=== PATIENT | male | born 1970 | race Caucasian/White ===

== ENCOUNTER 2017-01-14 10:33 | Emergency (ER) | payer BC ==
[2017-01-14] MEDS ORDERED: PREDNISONE 20 MG TAB PO ONE (11:13)
[2017-01-14 11:41] LABS: HEMATOCRIT 41.6 % (42.0-52.0); HEMOGLOBIN 14.5 gm/dl (14.0-18.0); MEAN CORPUSCULAR HEMOGLOBIN 31.4 pg (27-33); MEAN CORPUSCULAR HGB CONC 34.9 g/dl (32-36); MEAN PLATELET VOLUME 10.4 fl (7.4-10.4); PLATELET COUNT 195 K/uL (130-400); RED BLOOD COUNT 4.62 M/uL (4.40-5.70); RED CELL DISTRIBUTION WIDTH 12.3 % (11.5-14.5); WHITE BLOOD COUNT W/O DIFF 5.4 K/uL (4.2-12.2)
--- NOTE | 2017-01-14 11:53 | Emergency Department Record ---
History of Present Illness - General Chief Complaint: Ankle/Foot Injury Stated Complaint: L ANKLE PAIN Time Seen by Provider: 01/14/17 10:46 Source: Patient, RN notes reviewed Mode of Arrival: Ambulatory - History of Present Illness Initial Comments: ankle pain for 10 days and swollen and he has a history of gout Onset/Timin -: Days(s) Type of Injury: Unknown Place: Home Severity: Mild Severity scale (1-10): 5 Improves With: Immobilization Worsens With: Nothing, Other Associated Symptoms: Ambulatory - Related Data Previous Rx's Medication Instructions Recorded Prednisone [Prednisone 10Mg] 10 mg PO ASDIR #30 tab 01/14/17 Allergies Allergy/AdvReac Type Severity Reaction Status Date / Time No Known Drug Allergies Allergy Unverified 10/10/16 18:41 Travel Screening - Travel/Exposure Within Last 30 Days Have you traveled within the last 30 days?: No Review of Systems Reviewed: No additional complaints except as noted below Constitutional: Reports: As per HPI. Denies: Chills, Fever, Malaise, Night sweats, Weakness, Weight change Eyes: Reports: As per HPI. Denies: Eye discharge, Eye pain, Photophobia, Vision change ENT: Reports: As per HPI. Denies: Congestion, Dental pain, Ear pain, Epistaxis , Hearing loss, Throat pain Respiratory: Reports: As per HPI. Denies: Cough, Dyspnea, Hemoptysis, Stridor, Wheezes Cardiovascular: Reports: As per HPI. Denies: Arrhythmia, Chest pain, Dyspnea on exertion, Edema, Murmurs, Orthopnea, Palpitations, Paroxysmal nocturnal dyspnea, Rheumatic Fever, Syncope Endocrine: Reports: As per HPI. Denies: Fatigue, Heat or cold intolerance, Polydipsia, Polyuria Gastrointestinal: Reports: As per HPI. Denies: Abdominal pain, Constipation, Diarrhea, Hematemesis, Hematochezia, Melena, Nausea, Vomiting Genitourinary: Reports: As per HPI. Denies: Dysuria, Frequency, Hematuria, Incontinence, Retention, Testicular pain, Testicular mass, Urgency Musculoskeletal: Reports: As per HPI, Arthralgia (left ankle pain). Denies: Back pain, Gout, Joint swelling, Myalgia, Neck pain Skin: Reports: As per HPI. Denies: Bruising, Change in color, Change in hair/ nails, Lesions, Pruritus, Rash Neurological: Reports: As per HPI. Denies: Abnormal gait, Confusion, Headache, Numbness, Paresthesias, Seizure, Tingling, Tremors, Vertigo, Weakness Psychiatric: Reports: As per HPI. Denies: Anxiety, Auditory hallucinations, Depression, Homicidal thoughts, Suicidal thoughts, Visual hallucinations Hematological/Lymphatic: Reports: As per HPI. Denies: Anemia, Blood Clots, Easy bleeding, Easy bruising, Swollen glands Past Medical History - SOCIAL HISTORY Smoking Status: Former smoker Alcohol Use: Occasional Drug Use: None - RESPIRATORY Hx Respiratory Disorders: No - CARDIOVASCULAR Hx Cardio Disorders: Yes Hx Hypertension: Yes - NEURO Hx Neuro Disorders: No - GI Hx GI Disorders: No - Hx Genitourinary Disorders: No - ENDOCRINE Hx Endocrine Disorders: No - MUSCULOSKELETAL Hx Musculoskeletal Disorders: No - PSYCH Hx Psych Problems: No - HEMATOLOGY/ONCOLOGY Hx Hematology/Oncology Disorders: No Family Medical History Any Significant Family History?: No Physical Exam - General General Appearance: Alert, Oriented x3, Cooperative, No acute distress - Head Head exam: Normal inspection - Eye Eye exam: Normal appearance, PERRL Pupils: Normal accommodation - ENT ENT exam: Normal exam, Mucous membranes moist, Normal external ear exam, Normal orophraynx, TM's normal bilaterally Ear exam: Normal external inspection. negative: External canal tenderness Nasal Exam: Normal inspection. negative: Discharge, Sinus tenderness Mouth exam: Normal external inspection, Tongue normal Teeth exam: Normal inspection. negative: Dental caries Throat exam: Normal inspection. negative: Tonsillar erythema, Tonsillar exudate - Neck Neck exam: Normal inspection, Full ROM. negative: Tenderness - Respiratory Respiratory exam: Normal lung sounds bilaterally. negative: Respiratory distress - Cardiovascular Cardiovascular Exam: Regular rate, Normal rhythm, Normal heart sounds - GI/Abdominal GI/Abdominal exam: Soft, Normal bowel sounds. negative: Tenderness - Rectal Rectal exam: Deferred - exam: Deferred - Extremities Extremities exam: Joint swelling, Normal capillary refill, Tenderness (ankle pain left and swelling ) - Back Back exam: Reports: Normal inspection, Full ROM. Denies: Muscle spasm, Rash noted, Tenderness - Neurological Neurological exam: Alert, Normal gait, Oriented X3, Reflexes normal - Psychiatric Psychiatric exam: Normal affect, Normal mood - Skin Skin exam: Dry, Intact, Normal color, Warm Course Vital Signs 01/14/17 10:36 Temperature 97.8 F Pulse Rate 95 H Respiratory 18 Rate Blood Pressure 127/86 Pulse Ox 97 Medical Decision Making - Data Complexity MDM Data: Labs Ordered and/or Reviewed (uric acid is high), X-Ray Ordered and/ or Reviewed (negative for fractures) - Lab Data Result diagrams: 01/14/17 11:26 Lab Results 01/14/17 Range/Units 11:26 WBC 5.4 (4.2-12.2) K/uL RBC 4.62 (4.40-5.70) M/uL Hgb 14.5 (14.0-18.0) gm/dl Hct 41.6 L (42.0-52.0) % MCV 90.0 (81-97) fl MCH 31.4 (27-33) pg MCHC 34.9 (32-36) g/dl RDW 12.3 (11.5-14.5) % Plt Count 195 (130-400) K/uL MPV 10.4 (7.4-10.4) fl Eosinophils % Not Reportable Basophils % Not Reportable Disposition Clinical Impression: Gout attack Qualifiers: Gout site: ankle Gout etiology: idiopathic Laterality: left Qualified Code(s): M10.072 - Idiopathic gout, left ankle and foot Disposition: Home, Self-Care Condition: (1) Good Instructions: Gout (ED) Additional Instructions: follow up with family Prescriptions: Prednisone [Prednisone 10Mg] 10 mg PO ASDIR #30 tab Forms: Patient Portal Access Time of Disposition: 12:14 Quality - Quality Measures Quality Measures: N/A - Blood Pressure Screening Does Patient Have Any of the Following: No Blood Pressure Classification: Pre-Hypertensive BP Reading Systolic Measurement: 127 Diastolic Measurement: 86 Screening for High Blood Pressure: Patient Exclusion, Hx of HTN [G9744]
[2017-01-14 12:03] LABS: C-REACTIVE PROTEIN < 0.3 mg/L (<5.0)
--- NOTE | 2017-01-15 09:03 | RADIOLOGY REPORT ---
EXAM: LEFT ANKLE HISTORY: LEFT ANKLE PAIN. TECHNIQUE: Three views of the left ankle were obtained. Comparison: None. Encounter: Initial. FINDINGS: Deformity of the ankle mortise consistent with chronic degenerative change and/or old trauma. Negative for acute fracture or dislocation. Well corticated ossific densities are seen posteriorly. Small calcaneal spurs. The soft tissues are unremarkable. IMPRESSION: CHRONIC CHANGES TO THE ANKLE MORTISE. NO ACUTE OSSEOUS ABNORMALITY. JOB NUMBER: [id number] [facility]
== END 2017-01-14 12:24 | disposition home or self-care (01) ==
LOC: ER 10:33
DX: M10.072 Idiopathic gout, left ankle and foot (principal)
CPT/HCPCS: 99283; 99284; 84550; 86140; 85027; 73610; J7512

== ENCOUNTER 2017-09-02 00:47 | Emergency (ER) | payer BC ==
[2017-09-02] MEDS ORDERED: CEFTRIAXONE SODIUM 1 GM in 0.9 % SODIUM CHLORIDE 100ML 100 ML IVPB ONE (01:02)
--- NOTE | 2017-09-02 01:05 | Emergency Department Record ---
History of Present Illness - General Chief Complaint: Fever Stated Complaint: FEVER/SWELLING AT THE R ELBOW Time Seen by Provider: 09/02/17 00:56 Source: Patient Mode of Arrival: Ambulatory Limitations: No limitations - History of Present Illness Initial Comments: The patient is here due to R elbow pain for 2 days. The patient fell 2 days ago and punctured the R elbow on an unknown object. Since the elbow has become more swollen and painful. He has felt feverish but has not had any documented fever. MD Complaint: Other Onset/Timin -: Days(s) Temperature Source: Oral Associated Symptoms: Denies other symptoms Treatments Prior to Arrival: None - Related Data Home Medications Medication Instructions Recorded Confirmed Last Taken Allopurinol 100 mg PO DAILY 09/02/17 09/02/17 Unknown Previous Rx's Medication Instructions Recorded Cephalexin [Keflex] 500 mg PO QID #28 cap 09/02/17 Allergies Allergy/AdvReac Type Severity Reaction Status Date / Time No Known Drug Allergies Allergy Unverified 10/10/16 18:41 Travel Screening - Travel/Exposure Within Last 30 Days Have you traveled within the last 30 days?: No - Travel/Exposure Within Last Year Have you traveled outside the [place] in the last year?: No - Additonal Travel Details Have you been exposed to anyone with a communicable illness?: No - Travel Symptoms Symptom Screening: None Review of Systems Constitutional: Reports: Malaise. Denies: Chills, Fever Eyes: Denies: Eye discharge ENT: Denies: Congestion Respiratory: Denies: Cough, Dyspnea Past Medical History - SOCIAL HISTORY Smoking Status: Former smoker Alcohol Use: None Drug Use: None - RESPIRATORY Hx Respiratory Disorders: No - CARDIOVASCULAR Hx Cardio Disorders: Yes Hx Hypertension: Yes - NEURO Hx Neuro Disorders: No - GI Hx GI Disorders: No - Hx Genitourinary Disorders: No - ENDOCRINE Hx Endocrine Disorders: No - MUSCULOSKELETAL Hx Musculoskeletal Disorders: No - PSYCH Hx Psych Problems: No - HEMATOLOGY/ONCOLOGY Hx Hematology/Oncology Disorders: No Family Medical History Any Significant Family History?: No Physical Exam - General General Appearance: Alert, Oriented x3, Cooperative, No acute distress - Head Head exam: Atraumatic, Normocephalic, Normal inspection - Eye Eye exam: Normal appearance, PERRL - Extremities Extremities exam: Full ROM (There is normal ROM to the R elbow with pain on full flexion.), Normal capillary refill, Tenderness (There is swelling, erythema , and tenderness to the olcranon area with a healing puncture wound in the center.), Other (The R arm is NVI. The patient does have mild R 4th finger tenderness at the DIP joint but has normal flexion and extension.). negative: Normal inspection, Joint swelling (There are no signs of elbow joint effusion or infection. ) - Neurological Neurological exam: Alert. negative: Motor sensory deficit Course Vital Signs 09/02/17 00:52 Temperature 98.8 F Pulse Rate [ 72 Pulse Ox Probe] Respiratory 16 Rate Blood Pressure 130/78 [Left Arm] Pulse Ox 99 - Reevaluation(s) Reevaluation #1: Procedure note: The R olecranon bursae was prepped with betadine and anesth. with 1 cc's of Lido 1% with EPi. A # 18 guage needle was used to aspirate 2 cc' s of straw colored fluid from the bursae. There were no complications. 09/02/17 01:22 Reevaluation #2: The patient is doing very well. I did discuss the lab results and xray results. He is to return to the ER at 2:00 pm for recheck and repeat IV Abx's. 09/02/17 02:56 Medical Decision Making - Data Complexity MDM Data: Labs Ordered and/or Reviewed, X-Ray Ordered and/or Reviewed - Lab Data Result diagrams: 09/02/17 01:20 09/02/17 01:20 - Radiology Data Radiology results: Report reviewed (R elbow and 4th finger: neg for acute changes.) Disposition Disposition: Discharge Clinical Impression: Olecranon bursitis of right elbow Disposition: Home, Self-Care Condition: (2) Stable Instructions: Elbow Bursitis (ED) Additional Instructions: Please take your home Motrin for pain and please return to the ER at 2:00 pm for recheck and repeat IV abx's. Plan on starting the Keflex tomorrow if discharged this afternoon. Please plan on seeing your family doctor for recheck in 2-3 days. Prescriptions: Cephalexin [Keflex] 500 mg PO QID #28 cap Forms: Patient Portal Access Time of Disposition: 02:59 Quality - Quality Measures Quality Measures: N/A - Blood Pressure Screening View Details: Yes Does Patient Have Any of the Following: No Blood Pressure Classification: Normal BP Reading Systolic Measurement: 118 Diastolic Measurement: 74 Screening for High Blood Pressure: < Normal BP, F/U Not Required > [G8755]
[2017-09-02] MEDS ORDERED: Diph,Pert(Acell),Tet Vac 0.5 ML SYR IM ONE (01:21)
[2017-09-02 01:40] LABS: BASO % 0.4 % (0-6); EOS % 5.1 % (0-6); HEMATOCRIT 39.1 % (42.0-52.0); HEMOGLOBIN 13.2 gm/dl (14.0-18.0); LYMPH % 14.9 % (16-45); MEAN CELL VOLUME 91.6 fl (81-97); MEAN CORPUSCULAR HEMOGLOBIN 30.9 pg (27-33); MEAN CORPUSCULAR HGB CONC 33.8 g/dl (32-36); MEAN PLATELET VOLUME 10.1 fl (7.4-10.4); MONO % 14.6 % (0-9); PLATELET COUNT 217 K/uL (130-400); RED BLOOD COUNT 4.27 M/uL (4.40-5.70); RED CELL DISTRIBUTION WIDTH 13.4 % (11.5-14.5); WHITE BLOOD COUNT W/O DIFF 8.6 K/uL (4.2-12.2)
[2017-09-02] MEDS ORDERED: IBUPROFEN 600 MG TABLET PO ONE (01:42)
[2017-09-02 03:04] LABS: BLOOD UREA NITROGEN 20 mg/dL (6-20); EST GLOMERULAR FILTRATION RATE > 60 mL/min
[2017-09-02 03:07] LABS: GLUCOSE,RANDOM 139 mg/dL (74-109)
[2017-09-02 03:10] LABS: C-REACTIVE PROTEIN 1.71 mg/dL (<0.5)
[2017-09-02 05:21] LABS: SYNOVIAL FLUID SOURCE ELBOW
[2017-09-02 05:22] LABS: SYNOVIAL FLUID APPEARANCE YELLOW; SYNOVIAL FLUID COLOR TURBID
--- NOTE | 2017-09-03 10:21 | RADIOLOGY REPORT ---
EXAM: RIGHT FOURTH FINGER HISTORY: INJURY. TECHNIQUE: Three views of the right fourth finger were obtained. Comparison: None. FINDINGS: Negative for an acute fracture or dislocation. The soft tissues are unremarkable. IMPRESSION: NEGATIVE EXAMINATION. J[facility]BER: [id number] [facility]
--- NOTE | 2017-09-03 10:24 | RADIOLOGY REPORT ---
EXAM: RIGHT ELBOW HISTORY: PAIN. TECHNIQUE: Four views of the right elbow were obtained. Comparison: None. FINDINGS: Post surgical changes of the distal humerus. Posterior soft tissue swelling. Olecranon spur. Degenerative changes of the elbow with joint space narrowing and spur formation. No evidence for an acute fracture or dislocation. No definitive joint effusion. IMPRESSION: POST SURGICAL CHANGE OF THE DISTAL HUMERUS. DEGENERATIVE CHANGES. POSTERIOR SOFT TISSUE SWELLING. [facility]BER: [id number] [facility]
== END 2017-09-02 03:04 | disposition home or self-care (01) ==
LOC: ER 00:47
DX: M70.21 Olecranon bursitis, right elbow (principal); I10 Essential (primary) hypertension; Z87.891 Personal history of nicotine dependence
CPT/HCPCS: 20605; 73140; 80048; 85025; 86140; 89051; 90715; 96365; 96372; 99282; 99284

== ENCOUNTER 2017-09-02 14:14 | Emergency (ER) | payer BC ==
[2017-09-02] MEDS ORDERED: CEFTRIAXONE 1 GRAM VIAL IM ONE (14:55)
--- NOTE | 2017-09-02 14:57 | Emergency Department Record ---
History of Present Illness - General Chief Complaint: Wound, check Stated Complaint: WOUND RECHECK/RT FOREARM Time Seen by Provider: 09/02/17 14:52 - History of Present Illness Initial Comments: recheck of olecronen bursitis and the patient states slightly better and less swollen and his primary DrHari is in [place] Onset/Timin -: Days(s) Initial Visit For: Cellulitis Returns Today for: Cellulitis follow-up Symptoms Since Prior Visit: No new symptoms Treatments Prior to Arrival: Given antibiotics on initial visit - Related Data Previous Rx's Medication Instructions Recorded Cephalexin [Keflex] 500 mg PO QID #28 cap 09/02/17 Sulfamethoxazole/Trimethoprim 1 each PO BID #20 tablet 09/02/17 [Bactrim Ds Tablet] Allergies Allergy/AdvReac Type Severity Reaction Status Date / Time No Known Drug Allergies Allergy Verified 09/02/17 14:23 Travel Screening - Travel/Exposure Within Last 30 Days Have you traveled within the last 30 days?: Yes Location Detail:: [place] - Travel/Exposure Within Last Year Have you traveled outside the [place] in the last year?: No - Additonal Travel Details Have you been exposed to anyone with a communicable illness?: No - Travel Symptoms Symptom Screening: None Review of Systems Reviewed: No additional complaints except as noted below Constitutional: Reports: As per HPI. Denies: Chills, Fever, Malaise, Night sweats, Weakness, Weight change Eyes: Reports: As per HPI. Denies: Eye discharge, Eye pain, Photophobia, Vision change ENT: Reports: As per HPI. Denies: Congestion, Dental pain, Ear pain, Epistaxis , Hearing loss, Throat pain Respiratory: Reports: As per HPI. Denies: Cough, Dyspnea, Hemoptysis, Stridor, Wheezes Cardiovascular: Reports: As per HPI. Denies: Arrhythmia, Chest pain, Dyspnea on exertion, Edema, Murmurs, Orthopnea, Palpitations, Paroxysmal nocturnal dyspnea, Rheumatic Fever, Syncope Endocrine: Reports: As per HPI. Denies: Fatigue, Heat or cold intolerance, Polydipsia, Polyuria Gastrointestinal: Reports: As per HPI. Denies: Abdominal pain, Constipation, Diarrhea, Hematemesis, Hematochezia, Melena, Nausea, Vomiting Genitourinary: Reports: As per HPI. Denies: Dysuria, Frequency, Hematuria, Incontinence, Retention, Testicular pain, Testicular mass, Urgency Musculoskeletal: Reports: As per HPI. Denies: Arthralgia, Back pain, Gout, Joint swelling, Myalgia, Neck pain Skin: Reports: As per HPI. Denies: Bruising, Change in color, Change in hair/ nails, Lesions, Pruritus, Rash Neurological: Reports: As per HPI. Denies: Abnormal gait, Confusion, Headache, Numbness, Paresthesias, Seizure, Tingling, Tremors, Vertigo, Weakness Psychiatric: Reports: As per HPI. Denies: Anxiety, Auditory hallucinations, Depression, Homicidal thoughts, Suicidal thoughts, Visual hallucinations Hematological/Lymphatic: Reports: As per HPI. Denies: Anemia, Blood Clots, Easy bleeding, Easy bruising, Swollen glands Past Medical History - SOCIAL HISTORY Smoking Status: Former smoker Alcohol Use: Occasional Drug Use: None - RESPIRATORY Hx Respiratory Disorders: No - CARDIOVASCULAR Hx Cardio Disorders: Yes Hx Hypertension: Yes - NEURO Hx Neuro Disorders: No - GI Hx GI Disorders: No - Hx Genitourinary Disorders: No - ENDOCRINE Hx Endocrine Disorders: No - MUSCULOSKELETAL Hx Musculoskeletal Disorders: No - PSYCH Hx Psych Problems: No - HEMATOLOGY/ONCOLOGY Hx Hematology/Oncology Disorders: No Family Medical History Any Significant Family History?: No Physical Exam - General General Appearance: Alert, Oriented x3, Cooperative, No acute distress - Head Head exam: Normal inspection - Eye Eye exam: Normal appearance, PERRL Pupils: Normal accommodation - ENT ENT exam: Normal exam, Mucous membranes moist, Normal external ear exam, Normal orophraynx, TM's normal bilaterally Ear exam: Normal external inspection. negative: External canal tenderness Nasal Exam: Normal inspection. negative: Discharge, Sinus tenderness Mouth exam: Normal external inspection, Tongue normal Teeth exam: Normal inspection. negative: Dental caries Throat exam: Normal inspection. negative: Tonsillar erythema, Tonsillar exudate - Neck Neck exam: Normal inspection, Full ROM. negative: Tenderness - Respiratory Respiratory exam: Normal lung sounds bilaterally. negative: Respiratory distress - Cardiovascular Cardiovascular Exam: Regular rate, Normal rhythm, Normal heart sounds - GI/Abdominal GI/Abdominal exam: Soft, Normal bowel sounds. negative: Tenderness - Rectal Rectal exam: Deferred - exam: Deferred - Extremities Extremities exam: Normal inspection, Full ROM, Normal capillary refill. negative: Tenderness - Back Back exam: Reports: Normal inspection, Full ROM. Denies: Muscle spasm, Rash noted, Tenderness - Neurological Neurological exam: Alert, Normal gait, Oriented X3, Reflexes normal - Psychiatric Psychiatric exam: Normal affect, Normal mood - Skin Skin exam: Dry, Intact, Normal color, Warm Course Vital Signs 09/02/17 14:24 Temperature 98.4 F Pulse Rate 79 Respiratory 20 Rate Blood Pressure 139/77 Pulse Ox 98 Disposition Clinical Impression: Olecranon bursitis of right elbow Disposition: Home, Self-Care Condition: (1) Good Instructions: Wound Infection (ED) Additional Instructions: start keflesx four times a day start bactrim DS twice a day see primary Dr tomorrow or return to [facility] ED Prescriptions: Sulfamethoxazole/Trimethoprim [Bactrim Ds Tablet] 1 each PO BID #20 tablet Forms: Patient Portal Access Time of Disposition: 15:02 Quality - Quality Measures Quality Measures: N/A - Blood Pressure Screening Does Patient Have Any of the Following: No Blood Pressure Classification: Pre-Hypertensive BP Reading Systolic Measurement: 139 Diastolic Measurement: 77 Screening for High Blood Pressure: < Pre-Hypertensive BP, F/U Documented > [ G8950] Pre-Hypertensive Follow-up Interventions: Referral to alternative/primary care provider.
== END 2017-09-02 15:19 | disposition home or self-care (01) ==
LOC: ER 14:14
DX: M70.21 Olecranon bursitis, right elbow (principal)

== ENCOUNTER 2017-09-03 16:27 | Emergency (ER) | payer BC ==
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
[2017-09-03] MEDS ORDERED: ONDANSETRON HCL IV 4 MG/2 ML VIAL IVP ONE (16:45)
[2017-09-03] MEDS ORDERED: 0.9 % SODIUM CHLORIDE 1,000 ML BAG IV ONE (16:45)
[2017-09-03] MEDS ORDERED: CEFAZOLIN 2 Gram 2 GM/50 ML BAG IVPB ONE (16:46)
[2017-09-03 17:04] LABS: BASO % 0.1 % (0-6); EOS % 0.4 % (0-6); HEMATOCRIT 41.5 % (42.0-52.0); LYMPH % 0.9 % (16-45); MEAN CELL VOLUME 91.4 fl (81-97); MEAN CORPUSCULAR HEMOGLOBIN 30.8 pg (27-33); MEAN CORPUSCULAR HGB CONC 33.7 g/dl (32-36); MEAN PLATELET VOLUME 9.8 fl (7.4-10.4); MONO % 4.7 % (0-9); PLATELET COUNT 174 K/uL (130-400); RED BLOOD COUNT 4.54 M/uL (4.40-5.70); RED CELL DISTRIBUTION WIDTH 13.6 % (11.5-14.5); WHITE BLOOD COUNT W/O DIFF 9.1 K/uL (4.2-12.2)
[2017-09-03 17:18] LABS: BLOOD UREA NITROGEN 18 mg/dL (6-20); EST GLOMERULAR FILTRATION RATE > 60 mL/min
[2017-09-03 17:21] LABS: GLUCOSE,RANDOM 130 mg/dL (74-109)
[2017-09-03 17:24] LABS: C-REACTIVE PROTEIN 8.02 mg/dL (<0.5)
[2017-09-03] MEDS ORDERED: ACETAMINOPHEN 500 MG TABLET PO ONE (17:44)
[2017-09-03] MEDS ORDERED: IBUPROFEN 600 MG TABLET PO ONE (17:45)
[2017-09-03] MEDS ORDERED: VANCOMYCIN HCL IVPB ONE (18:32)
[2017-09-03] MEDS ORDERED: SODIUM CHLORIDE 0.9% IVPB ONE (18:32)
== END 2017-09-03 19:36 | disposition short-term general hospital (02) ==
LOC: ER 16:27
DX: M71.121 Other infective bursitis, right elbow (principal); L03.113 Cellulitis of right upper limb; R50.81 Fever presenting with conditions classified elsewhere; I10 Essential (primary) hypertension; Z87.891 Personal history of nicotine dependence
CPT/HCPCS: 99285 ×2; 96365; 96366; 96375; 86140; 80048; 85027; J2405; J3370; J0690; J7030; J7040

== ENCOUNTER 2018-02-20 20:39 | Emergency (ER) | payer BC ==
[2018-02-20] MEDS ORDERED: CLINDAMYCIN 150 MG CAP PO ONE (20:52)
--- NOTE | 2018-02-20 20:54 | Emergency Department Record ---
History of Present Illness - General Chief complaint: Rash Stated complaint: INNFECTION RT FOREARM Time Seen by Provider: 02/20/18 20:52 Source: Patient Mode of Arrival: Ambulatory Limitations: No limitations - History of Present Illness Initial comments: 47 yo male presents to ED for evaluation of several erythematous ulcerated lesions to the right forearm. Patient reports a history of similar symptoms, was told the lesions were caused from a staph infection to the skin. Patient reports that "I just want to catch it early as last time I was started on 8 weeks of vancomycin". Patient denies fevers, chills, or recent illness symptoms. MD complaint: Lesion Onset/Timin -: Days(s) Location: RUE Severity: Moderate Consistency: Constant Improves with: None Worsens with: None Context: None Associated symptoms: Itching Treatments Prior to Arrival: None - Related Data Previous Rx's Medication Instructions Recorded Clindamycin HCl 300 mg PO QID #39 capsule 02/20/18 Allergies Allergy/AdvReac Type Severity Reaction Status Date / Time No Known Drug Allergies Allergy Verified 09/03/17 16:40 Review of Systems Constitutional: Denies: Chills, Fever, Malaise, Night sweats Eyes: Denies: Eye discharge, Eye pain ENT: Denies: Congestion, Ear pain, Epistaxis Respiratory: Denies: Cough, Dyspnea Cardiovascular: Denies: Chest pain, Dyspnea on exertion Endocrine: Denies: Fatigue, Heat or cold intolerance Gastrointestinal: Denies: Abdominal pain, Vomiting Genitourinary: Denies: Incontinence, Retention Musculoskeletal: Denies: Arthralgia, Back pain Skin: Reports: Lesions. Denies: Bruising, Change in color Neurological: Denies: Abnormal gait, Confusion, Headache, Seizure Psychiatric: Denies: Anxiety Hematological/Lymphatic: Denies: Anemia, Blood Clots Past Medical History - SOCIAL HISTORY Smoking Status: Former smoker Drug Use: None - RESPIRATORY Hx Respiratory Disorders: No - CARDIOVASCULAR Hx Cardio Disorders: Yes Hx Hypertension: Yes - NEURO Hx Neuro Disorders: No - GI Hx GI Disorders: No - Hx Genitourinary Disorders: No - ENDOCRINE Hx Endocrine Disorders: No - MUSCULOSKELETAL Hx Musculoskeletal Disorders: No - PSYCH Hx Psych Problems: No - HEMATOLOGY/ONCOLOGY Hx Hematology/Oncology Disorders: No Physical Exam - General General Appearance: Alert, Oriented x3, Cooperative, No acute distress Limitations: No limitations - Head Head exam: Atraumatic, Normocephalic, Normal inspection Head exam detail: negative: Abrasion, Contusion, Kuo's sign, General tenderness, Hematoma, Laceration - Eye Eye exam: Normal appearance. negative: Conjunctival injection, Periorbital swelling, Periorbital tenderness, Scleral icterus - ENT Ear exam: negative: Auricular hematoma, Auricular trauma Nasal Exam: negative: Active bleeding, Discharge, Dried blood, Foreign body Mouth exam: negative: Drooling, Laceration, Muffled voice, Tongue elevation - Neck Neck exam: Normal inspection. negative: Meningismus, Tenderness - Respiratory Respiratory exam: Normal lung sounds bilaterally. negative: Rales, Respiratory distress, Rhonchi, Stridor - Cardiovascular Cardiovascular Exam: Regular rate, Normal rhythm, Normal heart sounds - GI/Abdominal GI/Abdominal exam: Soft. negative: Rebound, Rigid, Tenderness - Rectal Rectal exam: Deferred - exam: Deferred - Extremities Extremities exam: Other (4-6 0.5 cm lesions with midl erythematous lesions to the volar aspect of the right forearm, no cellulitis is present, compartments are soft on examination, and patient has strong distal radial pulse.). negative : Calf tenderness, Pedal edema, Tenderness - Back Back exam: Denies: CVA tenderness (R), CVA tenderness (L) - Neurological Neurological exam: Alert, Normal gait, Oriented X3 - Psychiatric Psychiatric exam: Normal affect, Normal mood - Skin Skin exam: Normal color. negative: Abrasion Type of lesion: negative: abrasion Course - Reevaluation(s) Reevaluation #1: 02/20/18 20:59 Patient was seen and examined, reports that his lesions are the result of a staph infection previously treated with Vancomycin. Patient reports adverse reaction to Vancomycin previously as well (elevated liver enzymes) Will treat with Clindamycin with instructions to follow-up with his PCP in 3-5 days for re-evaluation. Disposition Disposition: Discharge Clinical Impression: Skin lesion of right arm Disposition: Home, Self-Care Condition: (2) Stable Instructions: MRSA (Methicillin-Resistant Staphylococcus Aureus) (ED) Additional Instructions: Return to ED if your symptoms worsen or if you have any concerns. Clindamycin as directed. Follow-up with your family doctor in 3-5 days as directed. Prescriptions: Clindamycin HCl 300 mg PO QID #39 capsule Forms: Patient Portal Access Time of Disposition: 20:54 Quality - Quality Measures Quality Measures: N/A - Blood Pressure Screening Does Patient Have Any of the Following: No Blood Pressure Classification: Hypertensive Reading Systolic Measurement: 129 Diastolic Measurement: 90 Screening for High Blood Pressure: < First Hypertensive BP, F/U Documented > [ G8950] First Hypertensive Follow-up Interventions: Referral to alternative/primary care provider.
== END 2018-02-20 21:00 | disposition home or self-care (01) ==
LOC: ER 20:39
DX: L98.8 Other specified disorders of the skin and subcutaneous tissue (principal); R94.5 Abnormal results of liver function studies; Z87.891 Personal history of nicotine dependence
CPT/HCPCS: 99282

== ENCOUNTER 2018-12-06 20:14 | Emergency (ER) | payer BC ==
[2018-12-06 20:33] LABS: URINE APPEARANCE CLEAR; URINE BILIRUBIN NEGATIVE (NEGATIVE); URINE BLOOD NEGATIVE (NEGATIVE); URINE COLOR YELLOW; URINE GLUCOSE (UA) NEGATIVE (NEGATIVE); URINE KETONE NEGATIVE (NEGATIVE); URINE LEUKOCYTE ESTERASE NEGATIVE (NEGATIVE); URINE NITRITE NEGATIVE (NEGATIVE); URINE PROTEIN NEGATIVE (NEGATIVE); URINE UROBILINOGEN 0.2 E.U./dL (0.20 - 1.00)
[2018-12-06] MEDS ORDERED: 0.9 % SODIUM CHLORIDE 1,000 ML BAG IV ONE (21:24)
[2018-12-06] MEDS ORDERED: KETOROLAC 30 MG/ML VIAL IVP ONE (21:24)
[2018-12-06 21:37] LABS: ABSOLUTE NEUTROPHIL COUNT 7.05; BASO % 0.2 % (0-6); EOS % 2.8 % (0-6); GRAN % 75.5 % (47-80); HEMATOCRIT 41.3 % (42.0-52.0); HEMOGLOBIN 13.6 gm/dl (14.0-18.0); LYMPH % 8.7 % (16-45); MEAN CELL VOLUME 95.8 fl (81-97); MEAN CORPUSCULAR HGB CONC 32.9 g/dl (32-36); MEAN PLATELET VOLUME 9.5 fl (7.4-10.4); MONO % 12.8 % (0-9); PLATELET COUNT 200 K/uL (130-400); RED BLOOD COUNT 4.31 M/uL (4.40-5.70); RED CELL DISTRIBUTION WIDTH 13.2 % (11.5-14.5); WHITE BLOOD COUNT W/O DIFF 9.3 K/uL (4.2-12.2)
[2018-12-06 21:41] LABS: MEAN CORPUSCULAR HEMOGLOBIN 31.5 pg (27-33)
[2018-12-06 21:51] LABS: BLOOD UREA NITROGEN 19 mg/dL (6-20); CREATININE 1.1 mg/dL (0.7-1.2); EST GLOMERULAR FILTRATION RATE > 60 mL/min
[2018-12-06 21:52] LABS: LIPASE 17 U/L (13-60); TOTAL PROTEIN 7.1 g/dL (6.6-8.7)
[2018-12-06 21:54] LABS: GLUCOSE,RANDOM 101 mg/dL (74-109)
[2018-12-06 21:56] LABS: ALT/SGPT 42 U/L (<41)
[2018-12-06 21:57] LABS: ALBUMIN 4.5 g/dL (4.0-5.0); ALKALINE PHOSPHATASE 61 U/L (40-129); AST/SGOT 24 U/L (10.0-50.0)
[2018-12-06 22:05] LABS: BILIRUBIN,DIRECT < 0.2 mg/dL (0-0.3)
--- NOTE | 2018-12-06 22:37 | Emergency Department Record ---
History of Present Illness - General Chief Complaint: Fever Stated Complaint: UTI/FEVER 101 Time Seen by Provider: 12/06/18 21:17 Source: Patient Mode of Arrival: Ambulatory Limitations: No limitations - History of Present Illness Initial Comments: pt thinks he has a uti. he has lower ap, fever, diarrhea and painful gas. nothing makes it better or worse. Complaint: Fever, Other Onset/Timin -: Days(s) Maximum Temperature: 101 F Temperature Source: Oral Associated Symptoms: Abdominal pain, Diarrhea Treatments Prior to Arrival: Ibuprofen - Related Data Previous Rx's Medication Instructions Recorded Ciprofloxacin HCl [Cipro] 500 mg PO Q12HR #20 tablet 12/06/18 Metronidazole [Flagyl] 500 mg PO Q8H #30 tablet 12/06/18 Allergies Allergy/AdvReac Type Severity Reaction Status Date / Time No Known Drug Allergies Allergy Unverified 05/06/18 14:27 Travel Screening - Travel/Exposure Within Last 30 Days Have you traveled within the last 30 days?: No - Travel/Exposure Within Last Year Have you traveled outside the [place] in the last year?: No - Additonal Travel Details Have you been exposed to anyone with a communicable illness?: No - Travel Symptoms Symptom Screening: Fever (Subjective) Review of Systems Reviewed: No additional complaints except as noted below Constitutional: Reports: As per HPI. Denies: Chills, Fever, Malaise, Night sweats, Weakness, Weight change Eyes: Reports: As per HPI. Denies: Eye discharge, Eye pain, Photophobia, Vision change ENT: Reports: As per HPI. Denies: Congestion, Dental pain, Ear pain, Epistaxis, Hearing loss, Throat pain Respiratory: Reports: As per HPI. Denies: Cough, Dyspnea, Hemoptysis, Stridor, Wheezes Cardiovascular: Reports: As per HPI. Denies: Arrhythmia, Chest pain, Dyspnea on exertion, Edema, Murmurs, Orthopnea, Palpitations, Paroxysmal nocturnal dyspnea, Rheumatic Fever, Syncope Endocrine: Reports: As per HPI. Denies: Fatigue, Heat or cold intolerance, Polydipsia, Polyuria Gastrointestinal: Reports: As per HPI, Abdominal pain, Diarrhea. Denies: Constipation, Hematemesis, Hematochezia, Melena, Nausea, Vomiting Genitourinary: Reports: As per HPI. Denies: Dysuria, Frequency, Hematuria, Inc ontinence, Retention, Testicular pain, Testicular mass, Urgency Musculoskeletal: Reports: As per HPI. Denies: Arthralgia, Back pain, Gout, Joint swelling, Myalgia, Neck pain Skin: Reports: As per HPI. Denies: Bruising, Change in color, Change in saavedra ir/nails, Lesions, Pruritus, Rash Neurological: Reports: As per HPI. Denies: Abnormal gait, Confusion, Headache, Numbness, Paresthesias, Seizure, Tingling, Tremors, Vertigo, Weakness Psychiatric: Reports: As per HPI. Denies: Anxiety, Auditory hallucinations, Depression, Homicidal thoughts, Suicidal thoughts, Visual hallucinations Hematological/Lymphatic: Reports: As per HPI. Denies: Anemia, Blood Clots, Easy bleeding, Easy bruising, Swollen glands Past Medical History - SOCIAL HISTORY Smoking Status: Former smoker Alcohol Use: Occasional Drug Use: None - RESPIRATORY Hx Respiratory Disorders: No - CARDIOVASCULAR Hx Cardio Disorders: Yes Hx Hypertension: Yes - NEURO Hx Neuro Disorders: No - GI Hx GI Disorders: No - Hx Genitourinary Disorders: No Hx UTI: Yes - ENDOCRINE Hx Endocrine Disorders: No - MUSCULOSKELETAL Hx Musculoskeletal Disorders: No - PSYCH Hx Psych Problems: No - HEMATOLOGY/ONCOLOGY Hx Hematology/Oncology Disorders: No Family Medical History Any Significant Family History?: Yes Hx Cancer: Father *Cancer Comment: Leukemia Hx Diabetes: Mother, Brother/Sister, Grandparents Hx Heart Disease: Brother/Sister Hx Kidney Disease: Father Physical Exam - General General Appearance: Alert, Oriented x3, Cooperative, Mild distress - Head Head exam: Normal inspection - Eye Eye exam: Normal appearance, PERRL, EOMI Pupils: Normal accommodation - ENT ENT exam: Normal exam, Mucous membranes moist, Normal external ear exam, Normal orophraynx Ear exam: Normal external inspection. negative: External canal tenderness Nasal Exam: Normal inspection. negative: Discharge, Sinus tenderness Mouth exam: Normal external inspection, Tongue normal Teeth exam: Normal inspection. negative: Dental caries Throat exam: Normal inspection. negative: Tonsillar erythema, Tonsillar exudate - Neck Neck exam: Normal inspection, Full ROM. negative: Tenderness - Respiratory Respiratory exam: Normal lung sounds bilaterally. negative: Respiratory distress - Cardiovascular Cardiovascular Exam: Regular rate, Normal rhythm, Normal heart sounds - GI/Abdominal GI/Abdominal exam: Soft, Normal bowel sounds, Tenderness (lower quads) - Rectal Rectal exam: Deferred - exam: Deferred - Extremities Extremities exam: Normal inspection, Full ROM, Normal capillary refill. negative: Tenderness - Back Back exam: Reports: Normal inspection, Full ROM. Denies: Muscle spasm, Rash noted, Tenderness - Neurological Neurological exam: Alert, CN II-XII intact, Normal gait, Oriented X3 - Psychiatric Psychiatric exam: Normal affect, Normal mood - Skin Skin exam: Dry, Intact, Normal color, Warm Course Vital Signs 12/06/18 12/06/18 20:31 22:22 Temperature 99.3 F 98.7 F Pulse Rate [ 75 77 Pulse Ox Probe] Respiratory 20 16 Rate Blood Pressure 128/85 102/64 [Left Arm] Pulse Ox 99 96 - Reevaluation(s) Reevaluation #1: 12/06/18 22:53 ct shows diverticulitis. no abscess ,no perforation Medical Decision Making - Lab Data Result diagrams: 12/06/18 21:30 12/06/18 21:30 Lab Results 12/06/18 12/06/18 12/06/18 Range/Units 20:28 21:30 21:30 WBC 9.3 (4.2-12.2) K/uL RBC 4.31 L (4.40-5.70) M/uL Hgb 13.6 L (14.0-18.0) gm/dl Hct 41.3 L (42.0-52.0) % MCV 95.8 (81-97) fl MCH 31.5 (27-33) pg MCHC 32.9 (32-36) g/dl RDW 13.2 (11.5-14.5) % Plt Count 200 (130-400) K/uL MPV 9.5 (7.4-10.4) fl Gran % 75.5 (47-80) % Lymphocytes % 8.7 L (16-45) % Monocytes % 12.8 H (0-9) % Eosinophils % 2.8 (0-6) % Basophils % 0.2 (0-6) % Absolute Neutrophils 7.05 Sodium 137 (136-145) mmol/L Potassium 4.3 (3.4-4.5) mmol/L Chloride 101 (98-107) mmol/L Carbon Dioxide 25.0 (22-29) mmol/L Anion Gap 11.0 (7-16) BUN 19 (6-20) mg/dL Creatinine 1.1 (0.7-1.2) mg/dL Estimated GFR > 60 mL/min Random Glucose 101 (74-109) mg/dL Calcium 9.3 (8.6-10.0) mg/dL Total Bilirubin 0.70 (0.2-1.0) mg/dL Direct Bilirubin < 0.2 (0-0.3) mg/dL AST 24 (10.0-50.0) U/L ALT 42 H (<41) U/L Alkaline Phosphatase 61 (40-129) U/L Total Protein 7.1 (6.6-8.7) g/dL Albumin 4.5 (4.0-5.0) g/dL Lipase 17 (13-60) U/L Urine Color Yellow Urine Appearance Clear Urine pH 7.0 (5.0-8.0) Ur Specific [place] 1.015 (1.002-1.030) Urine Protein Negative (NEGATIVE) Urine Glucose (UA) Negative (NEGATIVE) Urine Ketones Negative (NEGATIVE) Urine Blood Negative (NEGATIVE) Urine Nitrite Negative (NEGATIVE) Urine Bilirubin Negative (NEGATIVE) Urine Urobilinogen 0.2 (0.20 - 1.00) E.U./dL Ur Leukocyte Esterase Negative (NEGATIVE) Disposition Disposition: Discharge Clinical Impression: Diverticulitis Disposition: Home, Self-Care Condition: (1) Good Instructions: Diverticulitis (ED) Additional Instructions: recheck tomorrow without fail. return sooner if worse. Prescriptions: Ciprofloxacin HCl [Cipro] 500 mg PO Q12HR #20 tablet Metronidazole [Flagyl] 500 mg PO Q8H #30 tablet Quality - Quality Measures Quality Measures: N/A - Blood Pressure Screening Does Patient Have Any of the Following: No Blood Pressure Classification: Normal BP Reading Systolic Measurement: 102 Diastolic Measurement: 64 Screening for High Blood Pressure: < Normal BP, F/U Not Required > [G8783]
[2018-12-06] MEDS ORDERED: CIPROFLOXACIN LACTATE/D5W 400 MG/200 ML BAG IVPB ONE (22:40)
[2018-12-06] MEDS ORDERED: METRONIDAZOLE 250 MG TABLET PO ONE (22:41)
--- NOTE | 2018-12-09 08:05 | CT SCAN REPORT ---
EXAM: CT OF THE ABDOMEN AND PELVIS HISTORY: ABDOMINAL PAIN. TECHNIQUE: CT of the abdomen and pelvis was performed without intravenous or oral contrast. Comparison: None. FINDINGS: The lung bases are unremarkable. There is wall thickening of the sigmoid colon. There are adjacent inflammatory changes. There is no abscess, free air or free fluid seen. The colon otherwise is unremarkable. No abnormal small bowel loops are seen. The appendix is unremarkable. There is diffuse fatty infiltration of the liver. There is no hepatic mass. There are punctate calcifications in the spleen likely due to old granulomatous disease. The spleen is otherwise unremarkable. There are no gallstones identified. The bile ducts are not dilated and the pancreas is unremarkable. There is no adrenal mass identified. There are no renal or ureteral calculi. No contour deforming renal mass or hydronephrosis. There is no aortic aneurysm. No periaortic mass or adenopathy identified. There is bilateral spondylolysis of L4 and L5. There is minimal anterior subluxation of L4 on L5 and of L5 on S1. The vertebral heights are well maintained. There is no acute fracture. No lytic or blastic bone lesion. No pelvic mass, abscess or adenopathy. No free air or free fluid. IMPRESSION: 1. DIVERTICULITIS IN THE SIGMOID COLON WITH INFLAMMATORY CHANGES. NO ABSCESS, FREE AIR OR FREE FLUID IDENTIFIED. 2. HEPATIC STEATOSIS. 3. 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 4. OTHER FINDINGS ABOVE. JOB NUMBER: [id number] [facility]
== END 2018-12-07 00:08 | disposition home or self-care (01) ==
LOC: ER 20:14
DX: K57.92 Diverticulitis of intestine, part unspecified, without perforation or abscess without bleeding (principal); R19.7 Diarrhea, unspecified; R14.1 Gas pain; I10 Essential (primary) hypertension; Z87.891 Personal history of nicotine dependence
CPT/HCPCS: 99284 ×2; 96374; 96375; 83690; 85025; 80076; 80048; 81003; 74176; J0744; J1885; J7030

== ENCOUNTER 2018-12-07 10:52 | Emergency (ER) | payer BC ==
--- NOTE | 2018-12-07 11:12 | Emergency Department Record ---
History of Present Illness - General Chief Complaint: Recheck - Other Stated Complaint: RECHECK FROM LAST NIGHT Time Seen by Provider: 12/07/18 10:54 Source: Patient Mode of arrival: Ambulatory Limitations: No limitations - History of Present Illness Initial Comments: 48 yo male presents at the request of Dr Mcghee for a recheck in the ED. He was diagnosed with diverticulitis on CT scan last night. Moderate non complicated diverticulitis was on the CT scan. Since DC no fevers, nausea, vomiting or diarrhea. He reports he did take his antibiotics without difficulty. No bloody stools. The pain is improving. His appetite is normal and he is following a diet to avoid heavy meals. He has no other new complaints or symptoms. MD Complaint: Other -: Days(s) Initial Visit For: Other (diverticulitis) Symptoms Since Prior Visit: No new symptoms, Improved Associated Symptoms: Abdominal pain (improving) Treatments Prior to Arrival: Other (antibiotics) - Related Data Previous Rx's Medication Instructions Recorded Ciprofloxacin HCl [Cipro] 500 mg PO Q12HR #20 tablet 12/06/18 Metronidazole [Flagyl] 500 mg PO Q8H #30 tablet 12/06/18 Allergies Allergy/AdvReac Type Severity Reaction Status Date / Time No Known Drug Allergies Allergy Unverified 05/06/18 14:27 Review of Systems Constitutional: Denies: Chills, Fever, Malaise, Weakness Eyes: Denies: Eye discharge ENT: Denies: Congestion, Throat pain Respiratory: Denies: Cough, Dyspnea, Wheezes Cardiovascular: Denies: Chest pain, Palpitations, Syncope Endocrine: Denies: Fatigue, Polydipsia, Polyuria Gastrointestinal: Reports: Abdominal pain (improved). Denies: Diarrhea, Nausea, Vomiting Genitourinary: Denies: Dysuria, Frequency, Hematuria Musculoskeletal: Denies: Arthralgia, Back pain, Myalgia Skin: Denies: Bruising, Change in color, Rash Neurological: Denies: Headache Psychiatric: Denies: Anxiety Hematological/Lymphatic: Denies: Easy bleeding, Easy bruising Past Medical History - SOCIAL HISTORY Smoking Status: Former smoker Drug Use: None - RESPIRATORY Hx Respiratory Disorders: No - CARDIOVASCULAR Hx Cardio Disorders: Yes Hx Hypertension: Yes - NEURO Hx Neuro Disorders: No - GI Hx GI Disorders: No - Hx Genitourinary Disorders: No Hx UTI: Yes - ENDOCRINE Hx Endocrine Disorders: No - MUSCULOSKELETAL Hx Musculoskeletal Disorders: No - PSYCH Hx Psych Problems: No - HEMATOLOGY/ONCOLOGY Hx Hematology/Oncology Disorders: No Family Medical History Hx Cancer: Father *Cancer Comment: Leukemia Hx Diabetes: Mother, Brother/Sister, Grandparents Hx Heart Disease: Brother/Sister Hx Kidney Disease: Father Physical Exam - General General Appearance: Alert, Oriented x3, Cooperative, No acute distress Limitations: No limitations - Head Head exam: Atraumatic, Normal inspection - Eye Eye exam: Normal appearance - ENT ENT exam: Normal exam Ear exam: Normal external inspection Nasal Exam: Normal inspection Mouth exam: Normal external inspection - Neck Neck exam: Normal inspection - Respiratory Respiratory exam: Normal lung sounds bilaterally. negative: Respiratory distress - Cardiovascular Cardiovascular Exam: Regular rate, Normal rhythm, Normal heart sounds - GI/Abdominal GI/Abdominal exam: Soft, Normal bowel sounds, Tenderness (Very minimal tenderness to palpation in the LLQ with only deep firm palpation, otherwise the area is not tender on typical palpaiton, abdomen is otherwise very soft and not tender to palpation). negative: Distended, Guarding, Rebound, Rigid - Rectal Rectal exam: Deferred - exam: Deferred - Back Back exam: Reports: Full ROM - Neurological Neurological exam: Alert, Oriented X3 - Psychiatric Psychiatric exam: Normal affect, Normal mood - Skin Skin exam: Dry, Intact, Normal color, Warm Course - Reevaluation(s) Reevaluation #1: 12/07/18 11:31 The patient is afebrile with unremarkable vital signs He is improved He is eating and drinking Clinically he is doing very well No indication for additional work up in the ED We discussed continued diet, antibiotics, and follow up with GI We discussed reasons to return if any concerns or questions. Disposition Disposition: Discharge Clinical Impression: Diverticulitis Disposition: Home, Self-Care Condition: (1) Good Instructions: Diverticulitis (ED) Additional Instructions: Return to the ER for a recheck if worse, any new concerns or questions Take the prescriptions provided as directed Referrals: VERONICA VEGA [DOCTOR OF OSTEOPATH] - [facility] [Provider Group] Forms: Patient Portal Access Time of Disposition: 11:27 Quality - Quality Measures Quality Measures: N/A - Blood Pressure Screening Does Patient Have Any of the Following: Active Dx of HTN Blood Pressure Classification: Pre-Hypertensive BP Reading Systolic Measurement: 142 Diastolic Measurement: 86 Screening for High Blood Pressure: Patient Exclusion, Hx of HTN [S7544]
== END 2018-12-07 11:33 | disposition home or self-care (01) ==
LOC: ER 10:52
DX: K57.92 Diverticulitis of intestine, part unspecified, without perforation or abscess without bleeding (principal); I10 Essential (primary) hypertension; Z87.891 Personal history of nicotine dependence
CPT/HCPCS: 99282

== ENCOUNTER 2019-03-03 12:13 | Day surgery (SDC) | payer BC ==
[2019-03-03] MEDS ORDERED: LIDOCAINE 2% MDV (20MG/ML) 20ML VIAL IV ONE (12:14)
[2019-03-03] MEDS ORDERED: PROPOFOL 10 MG/ML VIAL IV ONE (12:14)
--- NOTE | 2019-03-04 07:40 | Operative Note ---
DATE: 03/03/2019 OPERATION: COLONOSCOPY to the cecum. INDICATION: Recent episode of acute diverticulitis. Clinically this resolved. He presents today for screening colonoscopy. ANESTHESIA: Intravenous sedation was administered by the department of anesthesiology and included Diprivan titrated to effect. PROCEDURE: Following informed consent from this alert individual including a discussion of the risks and benefits of the procedure and an opportunity for the patient to ask questions, the patient was in the left lateral decubitus position. A digital rectal examination was performed. No abnormalities were noted. Following this, the Olympus [id number] video colonoscope was inserted into the rectum without resistance. The rectal mucosa had a normal appearance with normal folds and distensibility. The colonoscope was advanced up through the bowel to the level of the cecum without much difficulty. A few small diverticula were noted in the sigmoid colon on initial inspection. The cecum was well defined by noting the appendiceal orifice and ileocecal valve. From the base of the cecum, the colonoscope was slowly withdrawn. No abnormalities were noted except for diverticulosis appreciated in the sigmoid region. The endoscope was then withdrawn back into the rectum where retroflexion accomplished following air insufflation failed to demonstrate changes. The instrument was straightened and removed. The patient tolerated the procedure well and was returned to the recovery area in stable condition. IMPRESSION: 1. Sigmoid diverticulosis. 2. Otherwise unremarkable colonoscopy to the cecum. RECOMMENDATIONS: The patient was advised to have recheck colonoscopy in 10 years' time or sooner if problems arise. As always, thank you for allowing me to participate in the care of your patient. TAJ
== END 2019-03-03 14:25 | disposition home or self-care (01) ==
LOC: HOP 12:13
PROVIDERS: ATTEND Internal Medicine Gastroenterology
DX: Z12.11 Encounter for screening for malignant neoplasm of colon (principal); K57.30 Diverticulosis of large intestine without perforation or abscess without bleeding; Z87.19 Personal history of other diseases of the digestive system; I10 Essential (primary) hypertension
CPT/HCPCS: 00812; G0105